=== PATIENT | female | born 1950 | race Caucasian/White ===

== ENCOUNTER 2016-12-17 10:00 | Emergency (ER) | payer OTHER ==
[2016-12-17] MEDS ORDERED: Morphine Sulfate 2 MG/ML SYRINGE ONE (10:34)
[2016-12-17] MEDS ORDERED: Albuterol Sulfate 2.5 mg/3 ml Neb ONE (10:34)
[2016-12-17 10:45] LABS: Blood, Urine Large (Negative); Glucose, Urine (Dipstick) Negative (Negative); Ketone, Urine Negative (Negative); Nitrite Positive (Negative); Protein, Urine (Dipstick) 30 mg/dL (Neg-Trace)
[2016-12-17 10:47] LABS: Bilirubin Small (Negative)
[2016-12-17 10:49] LABS: #Basophils 0.1 thou/uL (0.0-0.2); #Eosinphils 0.1 thou/uL (0.0-0.7); #Lymphocytes 2.5 thou/uL (1.20-3.40); #Monocytes 0.5 thou/uL (0.11-0.59); #Neutrophils 6.3 thou/uL (1.40-6.50); %Basophils 0.8 % (0.0-1.0); %Eosinophils 0.8 % (0.0-10.0); Hematocrit 38.1 % (36.0-47.0); Mean Platelet Volume 6.8 fL (7.4-10.4); Red Blood Cell (RBC) Count 4.28 mill/uL (4.20-5.40); White Blood Cell (WBC) Count 9.4 thou/uL (4.8-10.8)
[2016-12-17 11:02] LABS: Bacteria/HPF 3+ HPF (None Seen); Squamous Epithelial 0-3 HPF (0-3); Yeast-All Forms Rare HPF (None Seen)
[2016-12-17 11:04] LABS: ALT (SGPT) 60 U/L (0-55); AST (SGOT) 61 U/L (5-34); Alkaline Phosphatase 84 U/L (40-150); Anion Gap 14 mmol/L (10-20); BUN (Urea Nitrogen) 18 mg/dL (9.8-20.1); Bilirubin, Total 0.6 mg/dL (0.2-1.2); Calc. Creatinine Clearance 0 mL/min (70-130); Calcium 9.2 mg/dL (7.8-10.44); Carbon Dioxide 23 mmol/L (23-31); Chloride 103 mmol/L (98-107); Estimated GFR-MDRD 86; Globulin 3.7 g/dL (2.4-3.5); Protein, Total 7.6 g/dL (5.8-8.1)
[2016-12-17 11:06] LABS: Troponin I Less than 0.010 ng/mL (< 0.028)
[2016-12-17] MEDS ORDERED: Sodium Chloride 0.9% 100 ML ONE (11:38)
[2016-12-17] MEDS ORDERED: cefTRIAXone\\ROCEPHIN 1 GM VIAL ONE (11:38)
--- NOTE | 2016-12-17 11:56 | CT ---
CT LUMBAR SPINE: Date: 12/17/[address] of the lumbar spine was performed following trauma. Axial slices were acquired, then coron al and sagittal reconstructions were done. FINDINGS: There is a fracture of the right transverse process of L3. This looks like it may be old and the rig ht transverse process of L2 is a bit irregular, suggesting it may have been involved by trauma in th e past. Otherwise, no lumbar fractures were seen. No focal disc herniations were appreciated. There is some mild concentric bulging of the L4-5 and L5-S1 discs. Facet arthritis is prominent in the low er lumbar levels. No central canal stenosis or foraminal stenosis was appreciated in the lumbar dennise on. An incidental finding on the study is arteriosclerosis with an abdominal aortic aneurysm that is bel ow the kidneys and reaches a maximal AP diameter of 3.2 cm. The aorta transiently dilates right arou nd the level of the renal arteries again, but the AP diameter there is about 2.3 cm. IMPRESSION: 1. Fracture of right transverse process of L3, possibly old. No other fracture seen. 2. 3+ cm infrarenal abdominal aortic aneurysm. POS: [facility]
[2016-12-17] MEDS ORDERED: Magnesium Sulfate 2 GM/100 ML BAG ONE (12:04)
[2016-12-17] MEDS ORDERED: methylPREDNISolone Sod Succ/PF 125 MG/2 ML VIAL ONE (12:04)
--- NOTE | 2016-12-17 12:07 | CT ---
CT OF THE PELVIS WITHOUT CONTRAST: Date: 12/17/[address] of the pelvis was performed for evaluation following trauma. Axial slices were acquired, t hen coronal and sagittal reconstructions were done. FINDINGS: There are fractures of the left superior and inferior pubic rami that are relatively nondisplaced. I do not see a significant pelvic hematoma. The hips are symmetrical and appear intact bilaterally. T he SI joints were roughly symmetrical. No sacral fractures were appreciated. Each iliac bone appeare d intact. IMPRESSION: Acute fractures of the left superior and inferior pubic rami. POS: [facility]
--- NOTE | 2016-12-17 12:17 | CT ---
CT OF THE LEFT HIP: Date: 12/17/[address] of the left hip was performed following trauma. FINDINGS: The proximal femur itself appear intact. No hip fractures noted. Hip joint space is normal in width. An irregularity along the outer surface of the femoral neck is symmetrical with the right hip and i s not a fracture. There are fractures of the left superior and inferior pubic rami that are relative ly nondisplaced. No pelvic hematoma seen on the images provided. IMPRESSION: 1. Fractures of the left superior and inferior pubic rami. 2. Left hip intact. POS: [facility]
--- NOTE | 2016-12-17 12:19 | RAD ---
PORTABLE CHEST: Date: 12/17/16 An AP portable film at 1122 hours is compared with the 08/10/16 study. FINDINGS: The heart is normal in size. The lungs are clear. No infiltrate, effusion, or vascular congestion se en. There is no mediastinal widening or shift. While the bones are not seen optimally, no gross frac tures were evident. IMPRESSION: Stable exam showing no acute findings. POS: [facility]
--- NOTE | 2016-12-17 14:34 | ERRECORD ---
[facility] (10:08 [facility]) MERGE: Ambulance TueDec 17, 2016 10:00. HPI FALL (10:31 JPIP) CHIEF COMPLAINT: Patient presents for evaluation of fall, from standing, landing on hard surface, landing on left side, Patient presents for evaluation of patient states she misplaced her cane stepping off a curb and fell on her left side, last evening. HISTORIAN: History provided by patient, Additional history obtained from EMS. LOCATION: Symptoms are localized, most severe to left hip and low back. QUALITY: Pain is dull in nature, described as aching. TIME COURSE: Sudden onset of symptoms, Date and time of onset was last night, There has been no change in the patient's symptoms over time, are constant. SEVERITY: Maximum severity of pain rated as 10/10, Current severity of pain rated as 7/10. ASSOCIATED WITH: No associated neck pain, No associated chest pain, No associated abdominal pain, Associated with back pain, moderate, to the lower back, No associated clavicle pain, No associated shoulder pain, No associated elbow pain, No associated wrist pain, No associated hand pain, No associated finger pain, Associated with hip pain, on the left, No associated knee pain, No associated ankle pain, No associated foot pain, No associated laceration(s), No associated headache, No associated loss of consciousness, No associated neurological symptoms prior to arrival, No associated numbness, Associated with shortness of breath, No associated tingling, No associated vomiting. EXACERBATED BY: Patient's condition exacerbated by extension, Patient's condition exacerbated by flexion, Patient's condition exacerbated by pronation, Patient's condition exacerbated by supination, Patient's condition exacerbated by walking, Patient's condition exacerbated by bearing weight. RELIEVED BY: Patient's condition relieved by nothing. RISK FACTORS: Risk factors for intracranial bleed, not applicable for this patient. ROS (10:34 JP) CONSTITUTIONAL: Historian denies fever, denies lethargy. ENT: Historian denies epistaxis, denies otorrhea, denies rhinorrhea. CARDIOVASCULAR: Historian denies chest pain, reports dyspnea on exertion. RESPIRATORY: Historian reports cough, reports shortness of breath. GI: Historian denies abdominal pain, denies nausea, denies vomiting. GENITOURINARY FEMALE: Historian denies hematuria, denies &a-1R&a+25V*p+0X*[id number]*c202B*c15G*c2P*p-0X&a-25V&a+1R Name: Shannon Kaur : 1950 F66 MedRec: [id number] AcctNum: [id number] Prepared: TueDec 17, 2016 14:31 by Interface Page 1 of 5 pMD [facility] EMERGENCY RECORD incontinence. MUSCULOSKELETAL: Historian reports arthralgias, reports back pain, reports fall, reports injury, reports joint stiffness. SKIN: Historian denies rash, denies skin changes, denies skin lesions. NEUROLOGIC: Historian denies mental status changes, denies paresthesias. NOTES: All systems reviewed, negative except as described above. PAST MEDICAL HISTORY MEDICAL HISTORY: Notes: right hip pain, COPD, Neuropathy, HTN, IBS, Notes: BRONCHITIS, HYPOTHYROIDISM, IBS, RLS, VERTIGO, Past medical history includes history of hypertension,. (10:13 JSMI) FEMALE SURGICAL HISTORY: Surgical history of appendectomy, Surgical history of hysterectomy, Surgical history of tonsillectomy. Patient's surgical history is not relevant to the management of the case. Lumpectomy. (10:13 JSMI) PSYCHIATRIC HISTORY: Depression. (10:13 JSMI) Notes: anxiety disorder. (10:38 JPIP) SOCIAL HISTORY: currently uses tobacco, smokes cigarettes, Patient smokes 1/2 packs per day. (10:13 JSMI) NOTES: Nursing records reviewed, Old chart reviewed, Medication list reviewed. (10:37 JPIP) KNOWN ALLERGIES traMADol: Reaction: Nausea, - dizziness intermittant CURRENT MEDICATIONS amLODIPine: TABLET : Strength - 10 mg : ORAL Patient Dose: 10 mg Oral ONCE. (10:11 AHOO) Savella: TABLET : Strength - 100 mg : ORAL Patient Dose: 100 mg Oral 2 times a day. (10:11 AHOO) loratadine: TABLET : Strength - 10 mg : ORAL Patient Dose: 10 mg Oral ONCE. (10:11 AHOO) levothyroxine: TABLET : Strength - 75 mcg : ORAL Patient Dose: 75 mcg Oral ONCE. (10:11 AHOO) cloNIDine HCl: TABLET : Strength - 0.1 mg : ORAL Patient Dose: 1 tab(s) Oral 2 times a day. (10:11 AHOO) citalopram: TABLET : Strength - 40 mg : ORAL Patient Dose: 1 tab(s) Oral once a day. (10:11 AHOO) Crestor: TABLET : Strength - 10 mg : ORAL Patient Dose: 1 tab(s) Oral once a day. (10:11 AHOO) &a-1R&a+25V*p+0X*[id number]*c202B*c15G*c2P*p-0X&a-25V&a+1R Name: Shannon Kaur : 1950 F66 MedRec: [id number] AcctNum: [id number] Prepared: TueDec 17, 2016 14:31 by Interface Page 2 of 5 pMD [facility] EMERGENCY RECORD dicyclomine: CAPSULE : Strength - 10 mg : ORAL Patient Dose: 1 cap(s) Oral 3 times a day. (10:17 AHOO) VITAL SIGNS VITAL SIGNS: BP: 159/80, Pulse: 100, Resp: 24, Temp: 100.0 (Oral), Pain: 7, O2 sat: 89 on Room Air, Time: 12/17/2016 10:04. (10:04 [facility]) BP: 165/89, Pulse: 94, Resp: 24, O2 sat: 96 on 2L Oxygen, Time: 12/17/2016 10:30. (10:30 OO) BP: 134/82, Pulse: 95, Resp: 20, Pain: 7, O2 sat: 98 on 2L Oxygen, Time: 12/17/2016 11:30. (11:30 [facility]) Temp: 99.9 (Oral), Time: 12/17/2016 12:02. (12:02 OO) BP: 136/80, Pulse: 84, Resp: 20, Pain: 5, O2 sat: 91 on 2L Oxygen, Time: 12/17/2016 13:00. (13:00 OO) Temp: 99.0 (Oral), Time: 12/17/2016 13:36. (13:36 OO) BP: 141/89, Pulse: 80, Resp: 20, Pain: 5, O2 sat: 93 on 2L Oxygen, Time: 12/17/2016 14:00. (14:00 [facility]) PHYSICAL EXAM (10:[address] [facility]GENCY [facility]) CONSTITUTIONAL: Vital signs reviewed, Patient febrile, temperature of 100.0, Pulse, tachycardic, Blood pressure, hypertensive, Respiratory rate, increased, Patient appears, uncomfortable, Patient appears in pain, in moderate pain distress, Patient alert and oriented to person, place and time. HEAD: Head exam included findings of head atraumatic, normocephalic. EYES: Eye exam included findings of eyelids normal to inspection, Conjunctiva normal, Sclera normal, no periorbital ecchymosis, no periorbital edema, no periorbital erythema. NECK: Neck exam included findings of normal range of motion, Trachea midline, no carotid bruits, no jugular venous distention, no tenderness. RESPIRATORY CHEST: Respiratory exam included findings of, mild respiratory distress, Breath sounds not clear, Wheezing present, diffusely, No rales, No rhonchi, Breath sounds not absent, Breath sounds diminished, to bilateral upper lobes, to bilateral lower lobes. CARDIOVASCULAR: Cardiovascular exam included findings of, rate tachycardic, rhythm regular. ABDOMEN FEMALE: Abdominal exam included findings of abdomen nontender, Liver normal, Spleen normal, no distension, no mass, no pulsatile masses, no peritoneal signs, no rigidity, no guarding, no rebound. BACK: Tenderness, midline to the lower back, paraspinal to the left lower back. &a-1R&a+25V*p+0X*d9745S*c202B*c15G*c2P*p-0X&a-25V&a+1R Name: Shannon Kaur : 1950 F66 MedRec: [id number] AcctNum: [id number] Prepared: TueDec 17, 2016 14:31 by Interface Page 3 of 5 pMD [facility] EMERGENCY RECORD UPPER EXTREMITY: Upper extremity exam included findings of inspection normal, range of motion normal. LOWER EXTREMITY: Left hip exam included findings of, no external rotation, no internal rotation, no shortening, tenderness, active range of motion abnormal, passive range of motion abnormal, distal pulses intact, distal motor intact. NEURO: Neuro exam findings include patient oriented to person, place and time, Raulito coma scale 15, Speech normal, no focal motor deficits. SKIN: Skin exam included findings of skin warm, dry, and normal in color. LYMPHATIC: Lymphatic exam included findings of cervical nodes normal, Submandibular normal. PSYCHIATRIC: Psychiatric exam included findings of patient oriented to person place and time, Normal affect. RADIOLOGYINTERPRETATION BACK: Lumbar spine CT shows, Other findings: L3 transverse process fx ?age. (12:04 JPIP) CHEST: Chest films negative, no infiltrates, no pneumothorax, no hemothorax, no masses, no cardiomegaly, no congestive heart failure, no effusion, no free air. (12:10 JPIP) LOWER EXTREMITIES: CT left hip neg +superior and inferior pubic ramus FX's. (12:04 JPIP) DEWER: Preliminary review of x-rays by, ED Physician, Preliminary review of CT scans by, Radiologist. (12:04 JPIP) MEDICATION ADMINISTRATION SUMMARY Drug Name: magnesium sulfate in water, Dose Ordered: 2 g, Route: IV Piggy Back, Status: Given, Time: 12:30 12/17/2016, Drug Name: Solu-MEDROL injection, Dose Ordered: 125 mg, Route: IV Push, Status: Given, Time: 12:09 12/17/2016, Drug Name: Rocephin injection, Dose Ordered: 2 g, Route: IV Piggy Back, Status: Given, Time: 11:53 12/17/2016, Drug Name: Dilaudid injection, Dose Ordered: 1 mg, Route: IV Push, Status: Given, Time: 11:53 12/17/2016, Drug Name: albuterol sulfate inhalation, Dose Ordered: 3 mL, Route: Nebulize, Status: Given, Time: 11:31 12/17/2016, Drug Name: morphine (PF) injection, Dose Ordered: 2 mg, Route: IV Push, Status: Given, Time: 10:39 12/17/2016, Drug Name: Normal Saline, Dose Ordered: 150 mL/hr, Route: IV Fluid Infusion, Status: Given, Time: 10:36 12/17/2016, Drug Name: DuoNeb, Dose Ordered: 3 mL, Route: Nebulize, Status: Given, Time: 10:35 12/17/2016, Detailed record available in Medication Service section. DOCTOR NOTES (13:15 JPIP) RE-EVALUATION: Routine re-evaluation, after administration of analgesics, The patient's condition has improved. &a-1R&a+25V*p+0X*f2599N*c202B*c15G*c2P*p-0X&a-25V&a+1R Name: Shannon Kaur : 1950 F66 MedRec: [id number] AcctNum: [id number] Prepared: TueDec 17, 2016 14:31 by Interface Page 4 of 5 pMD [facility] EMERGENCY RECORD PROBLEM LIST No recorded problems DIAGNOSIS (13:34 JPIP) FINAL: PRIMARY: superior and inferior pelvic ramus fx, ADDITIONAL: COPD exacerbation, L3 transvers process fx - age unknown., UTI. PRESCRIPTION No recorded prescriptions DISPOSITION PATIENT: Disposition Type: Transfer, Disposition: [facility], Disposition Transport: Ambulance, Condition: Improved. (13:34 JPIP) Patient left the department. (14:25 AHOO) [place]: AHOO=NISHANT Reed, February JPIP=DO Polanco Joseph JSMI=VALENTINO Schultz, Susan &a-1R&a+25V*p+0X*[id number]*c202B*c15G*c2P*p-0X&a-25V&a+1R Name: Shannon Kaur : 1950 F66 MedRec: [id number] AcctNum: [id number] Prepared: TueDec 17, 2016 14:31 by Interface Page 5 of 5 pMD [facility]TDD
--- NOTE | 2016-12-17 14:39 | PICIS ---
[facility] EMERGENCY RECORD COMMUNICATIONS (13:33 JPIP) COMMUNICATIONS: Physician, contacted/paged at [phone], Reason for notification transfer, Dr Jarvis accepts. ADMIN (10:08 JSMI) MERGE: Ambulance TueDec 17, 2016 10:00. TRIAGE (10:07 JSMI) PATIENT: NAME: Shannon Kaur, AGE: 66, GENDER: female, : Tue1950, TIME OF GREET: TueDec 17, 2016 10:01, PREFERRED LANGUAGE: Romansh, ETHNICITY: Not or , ECODE BILLING MAP: [facility], SSN: [id number], Zip Code: [address], KG WEIGHT: 68.04, PHONE: , , , PERSON ID: [id number], PAYMENT: X Medicaid, PCP: POLLO Meehan Kimberly. (10:07 JSMI) COMPLAINT: left hip pain. (10:07 JSMI) ADMISSION: URGENCY: 4 Non Urgent, ADMISSION SOURCE: Home, TRANSPORT: CAR, BED: TRIAGE. (10:07 JSMI) ASSESSMENT: Assessment: PT PRESENTS AWAKE ALERT AND ORIENTED. SKIN PINK WARM AND DRY., Symptoms began 12/16/2016 1730. (10:13 JSMI) PAIN: Pain is constant. (10:13 JSMI) SIRS SCORING: Heart Rate 55-109 (0), Temp range 96.8-101.1 (0), respiratory rate 12-24 (0), Mental Status altered: no (0), Infection or Suspected Infection: No. (10:13 JSMI) PROVIDERS: TRIAGE NURSE: Chino Schultz RN. (10:07 JSMI) VITAL SIGNS: BP 159/80, Pulse 100, Resp 24, Temp 100.0, (Oral), Pain 7, O2 Sat 89, on Room Air, Time 12/17/2016 10:04. (10:04 JSMI) PREVIOUS VISIT ALLERGIES: traMADol. (10:07 JSMI) traMADol. (10:13 JSMI) KNOWN ALLERGIES traMADol: Reaction: Nausea, - dizziness intermittant CURRENT MEDICATIONS amLODIPine: TABLET : Strength - 10 mg : ORAL Patient Dose: 10 mg Oral ONCE. (10:11 AHOO) Savella: TABLET : Strength - 100 mg : ORAL Patient Dose: 100 mg Oral 2 times a day. (10:11 AHOO) loratadine: TABLET : Strength - 10 mg : ORAL Patient Dose: 10 mg Oral ONCE. (10:11 AHOO) levothyroxine: TABLET : Strength - 75 mcg : ORAL Patient Dose: 75 mcg Oral ONCE. (10:11 AHOO) cloNIDine HCl: TABLET : Strength - 0.1 mg : ORAL Patient Dose: 1 tab(s) Oral 2 times a day. (10:11 AHOO) citalopram: &a-1R&a+25V*p+0X*z3016J*c202B*c15G*c2P*p-0X&a-25V&a+1R Name: Shannon Kaur : 1950 F66 MedRec: [id number] AcctNum: [id number] Prepared: TueDec 17, 2016 14:36 by Interface Page 1 of 15 pMD [facility] EMERGENCY RECORD TABLET : Strength - 40 mg : ORAL Patient Dose: 1 tab(s) Oral once a day. (10:11 AHOO) Crestor: TABLET : Strength - 10 mg : ORAL Patient Dose: 1 tab(s) Oral once a day. (10:11 AHOO) dicyclomine: CAPSULE : Strength - 10 mg : ORAL Patient Dose: 1 cap(s) Oral 3 times a day. (10:17 AHOO) VITAL SIGNS VITAL SIGNS: BP: 159/80, Pulse: 100, Resp: 24, Temp: 100.0 (Oral), Pain: 7, O2 sat: 89 on Room Air, Time: 12/17/2016 10:04. (10:04 [facility]) BP: 165/89, Pulse: 94, Resp: 24, O2 sat: 96 on 2L Oxygen, Time: 12/17/2016 10:30. (10:30 AHOO) BP: 134/82, Pulse: 95, Resp: 20, Pain: 7, O2 sat: 98 on 2L Oxygen, Time: 12/17/2016 11:30. (11:30 JSIA) Temp: 99.9 (Oral), Time: 12/17/2016 12:02. (12:02 AHOO) BP: 136/80, Pulse: 84, Resp: 20, Pain: 5, O2 sat: 91 on 2L Oxygen, Time: 12/17/2016 13:00. (13:00 AHOO) Temp: 99.0 (Oral), Time: 12/17/2016 13:36. (13:36 AHOO) BP: 141/89, Pulse: 80, Resp: 20, Pain: 5, O2 sat: 93 on 2L Oxygen, Time: 12/17/2016 14:00. (14:00 AHOO) NURSING ASSESSMENT: EXTREMITY LOWER (10:40 JSMI) CONSTITUTIONAL: Complex assessment performed, Patient arrives ambulatory, Gait steady, History obtained from patient, Patient appears comfortable, Patient cooperative, Patient alert, Oriented to person, place and time, Skin warm, Skin dry, Skin normal in color, Patient complains of LEFT HIP PAIN. PAIN: miserable pain, to the left hip, on a scale 0-10 patient rates pain as 7. LEFT LOWER EXTREMITY: Left lower extremity assessment findings include capillary refill less than 2 seconds, Skin color normal, Skin temperature warm, Distal sensation intact, Muscle tone normal, dorsalis pedis pulse is +3, Notes: Pain to left groin through to iliac crest. RIGHT LOWER EXTREMITY: Right lower extremity assessment findings include capillary refill less than 2 seconds, Skin color normal, Skin temperature warm, Distal sensation intact, Muscle tone normal. NURSING ASSESSMENT: FALL RISK (12:14 JSMI) FALL RISK: Fall risk assessment findings include: History of falls (5), Bed rest greater than 2 days (5), No use of level of consciousness altering agents with mentation or cognitive changes (0), No change in blood pressure (0), No sensory deficits (0), Impaired mobility (3), No neurologic diagnosis (0), No elimination problems (0), No confusion (0), Total score 13, Fall risk. &a-1R&a+25V*p+0X*b3977W*c202B*c15G*c2P*p-0X&a-25V&a+1R Name: Shannon Kaur : 1950 F66 MedRec: [id number] AcctNum: [id number] Prepared: TueDec 17, 2016 14:36 by Interface Page 2 of 15 pMD [facility] EMERGENCY RECORD NURSING ASSESSMENT: SKIN (12:09 JSMI) SKIN: Skin assessment findings include skin warm, Skin dry, Skin normal in color. DENNIS SCALE: (4) Sensory perception has no impairment, (3) Skin is occasionally moist, (2) Patient is chairfast, (2) Very limited mobility, (3) Adequate nutrition, (2) Patient has potential problem moving, Dennis Risk Total: 16. NURSING PROCEDURE: BEDSIDE SIRS TESTING (12:17 JSMI) SCORES: Heart Rate 55-109 (0), Temp range 96.8-101.1 (0), respiratory rate 12-24 (0), Latest WBC 3-14.9 (0), Mental Status altered: no (0), Infection or Suspected Infection: No. NURSING PROCEDURE: IV IV SITE 1: IV established, to the left antecubital, using an 18 gauge catheter, Notes: CHIEF ELECTRICIAN PER EMS. (10:32 AHOO) FOLLOW-UP SITE 1: After procedure, sterile transparent dressing applied, After procedure, no drainage at IV site, After procedure, no swelling at IV site, After procedure, no redness at IV site, Notes: IV PATENT AND INFUSING WITH DIFFICULTY. (14:17 AHOO) NURSING PROCEDURE: TRANSFER TRANSFER: Report called to receiving facility, SAUL AVELAR, Provided opportunity to answer questions, Bed assigned ER. (14:02 AHOO) Reason for transfer need for specialized care, Diagnosis: PELVIC FX, EXAC COPD, UTI, Accepting institution: [facility], Accepting physician: DR JARVIS, Referring physician: DR POLANCO, Transported by urgent ambulance, accompanied by emergency medical services personnel, Summary of Care printed, Copy of patient record prepared for receiving facility, Copy of diagnostic studies, Status of patient's valuables documented on chart, Medication reconciliation form prepared and sent to receiving facility, Patient consent for transfer signed, Family member contacted, PT NOTIFIED HER FAMILY VIA HER CELL PHONE, Notes: 1245 CALLED THE TRANSFERRED CENTER AND SPOKE WITH BALJINDER, 1332 DR JARVIS ACCEPTED AT THE [facility], 1332 ACCEPTING AD IS WICHO GONZALEZ, 1333 CHINO CALLED EMS, 1407 EMS ARRIVED. (14:07 AHOO) Notes: EMS LEFT WITH THE PT. (14:17 AHOO) BELONGINGS: cellular phone, purse, Description BLACK. (14:07 AHOO) ORDER DETAILS Order Name: B type Natriuretic Peptide, Status: Active, Time: 10:25 12/17/2016, User: DANELLE, - Ordered for: DO Polanco Joseph, - Entered by: DO Polanco Joseph - TueDec 17, 2016 10:25, - Quantity: 1, Order Name: CRUSHER OPERATOR ED, Status: Done, Time: 10:31 12/17/2016, &a-1R&a+25V*p+0X*l3136R*c202B*c15G*c2P*p-0X&a-25V&a+1R Name: Shannon Kaur : 1950 F66 MedRec: [id number] AcctNum: [id number] Prepared: TueDec 17, 2016 14:36 by Interface Page 3 of 15 pMD [facility] EMERGENCY RECORD User: JAQUELINE, - Ordered for: DO Polanco Joseph, - Entered by: DO Polanco Joseph - TueDec 17, 2016 10:25, - Quantity: 1, Order Name: Cardiac Profile w/CKMB & Troponin - I, Status: Active, Time: 10:25 12/17/2016, User: DANELLE, - Ordered for: DO Polanco Joseph, - Entered by: DO Polanco Joseph - TueDec 17, 2016 10:25, - Quantity: 1, Order Name: CBC with Differential, Status: Active, Time: 10:25 12/17/2016, User: DANELLE, - Ordered for: DO Polanco Joseph, - Entered by: DO Polanco Joseph - TueDec 17, 2016 10:25, - Quantity: 1, Order Name: Comprehensive Metabolic Panel, Status: Active, Time: 10:25 12/17/2016, User: DANELLE, - Ordered for: DO Polanco Joseph, - Entered by: DO Polanco Joseph - TueDec 17, 2016 10:25, - Quantity: 1, Order Name: CT Lower Ext Lt WO Con, Status: Active, Time: 10:31 12/17/2016, User: DANELLE, - Ordered for: DO Polanco Joseph, - Entered by: DO Polanco Joseph - TueDec 17, 2016 10:31, - Quantity: 1, Order Name: CT Lumbar Spine WO Con, Status: Active, Time: 10:16 12/17/2016, User: DANELLE, - Ordered for: DO Polanco Joseph, - Entered by: DO Polanco Joseph - TueDec 17, 2016 10:16, - Quantity: 1, Order Name: CT Pelvis WO Con, Status: Active, Time: 11:13 12/17/2016, User: DANELLE, - Ordered for: DO Polanco Joseph, - Entered by: DO Polanco Joseph - TueDec 17, 2016 11:13, - Quantity: 1, Order Name: Culture, Blood, Status: Active, Time: 11:23 12/17/2016, User: DANELLE, - Ordered for: DO Polanco Joseph, - Entered by: DO Polanco Joseph - TueDec 17, 2016 11:23, - Quantity: 1, Order Name: Culture, Urine, Status: Active, Time: 10:26 12/17/2016, User: DANELLE, - Ordered for: DO Polanco Joseph, - Entered by: DO Polanco Joseph - TueDec 17, 2016 10:26, - Quantity: 1, Order Name: ERRT * Smal Vol Neb Initial Trmt, Status: Active, Time: 10:24 12/17/2016, User: DANELLE, - Ordered for: DO Polanco Joseph, - Entered by: DO Polanco Joseph - TueDec 17, 2016 10:24, - Quantity: 1, Order Name: ERRT Small Vol Neb Sub Trmt, Status: Active, Time: &a-1R&a+25V*p+0X*e8677O*c202B*c15G*c2P*p-0X&a-25V&a+1R Name: Shannon Kaur : 1950 F66 MedRec: [id number] AcctNum: [id number] Prepared: TueDec 17, 2016 14:36 by Interface Page 4 of 15 pMD [facility] EMERGENCY RECORD 10:24 12/17/2016, User: DANELLE, - Ordered for: DO Polanco Joseph, - Entered by: DO Polanco Joseph - TueDec 17, 2016 10:24, - Quantity: 1, Order Name: ERRT Oxygen Usage ER, Status: Active, Time: 10:24 12/17/2016, User: DANELLE, - Ordered for: DO Polanco Joseph, - Entered by: DO Polanco Joseph - TueDec 17, 2016 10:24, - Quantity: 1, Order Name: ERRT Pulse Oximeter ER, Status: Active, Time: 10:24 12/17/2016, User: DANELLE, - Ordered for: DO Polanco Joseph, - Entered by: DO Polanco Joseph - TueDec 17, 2016 10:24, - Quantity: 1, Order Name: Lipase, Status: Active, Time: 11:23 12/17/2016, User: DANELLE, - Ordered for: DO Polanco Joseph, - Entered by: DO Polanco Joseph - TueDec 17, 2016 11:23, - Quantity: 1, Order Name: SALINE LOCK, Status: Done, Time: 10:31 12/17/2016, User: JAQUELINE, - Ordered for: DO Polanco Joseph, - Entered by: DO Polanco Joseph - TueDec 17, 2016 10:25, - Quantity: 1, Order Name: Urinalysis w/ Rflx Microscopic, Status: Active, Time: 10:26 12/17/2016, User: DANELLE, - Ordered for: DO Polanco Joseph, - Entered by: DO Polanco Joseph - TueDec 17, 2016 10:26, - Quantity: 1, Order Name: XR Chest 1 View Portable, Status: Active, Time: 10:19 12/17/2016, User: DANELLE, - Ordered for: DO Polanco Joseph, - Entered by: DO Polanco Joseph - TueDec 17, 2016 10:19, - Quantity: 1, Order Name: XR Hip Lt 2-3 View STANDARD, Status: Canceled, Time: 11:45 12/17/2016, User: System, - Ordered for: DO Polanco Joseph, - Entered by: DO Polanco Joseph - TueDec 17, 2016 10:10, - Quantity: 1. MEDICATION ADMINISTRATION SUMMARY Drug Name: magnesium sulfate in water, Dose Ordered: 2 g, Route: IV Piggy Back, Status: Given, Time: 12:30 12/17/2016, Drug Name: Solu-MEDROL injection, Dose Ordered: 125 mg, Route: IV Push, Status: Given, Time: 12:09 12/17/2016, Drug Name: Rocephin injection, Dose Ordered: 2 g, Route: IV Piggy Back, Status: Given, Time: 11:53 12/17/2016, Drug Name: Dilaudid injection, Dose Ordered: 1 mg, Route: IV Push, Status: Given, Time: 11:53 12/17/2016, &a-1R&a+25V*p+0X*s5515G*c202B*c15G*c2P*p-0X&a-25V&a+1R Name: Shannon Kaur : 1950 F66 MedRec: [id number] AcctNum: [id number] Prepared: TueDec 17, 2016 14:36 by Interface Page 5 of 15 pMD [facility] EMERGENCY RECORD Drug Name: albuterol sulfate inhalation, Dose Ordered: 3 mL, Route: Nebulize, Status: Given, Time: 11:31 12/17/2016, Drug Name: morphine (PF) injection, Dose Ordered: 2 mg, Route: IV Push, Status: Given, Time: 10:39 12/17/2016, Drug Name: Normal Saline, Dose Ordered: 150 mL/hr, Route: IV Fluid Infusion, Status: Given, Time: 10:36 12/17/2016, Drug Name: DuoNeb, Dose Ordered: 3 mL, Route: Nebulize, Status: Given, Time: 10:35 12/17/2016, Detailed record available in Medication Service section. MEDICATION SERVICE albuterol sulfate inhalation: Order: albuterol sulfate inhalation (albuterol sulfate) - Dose: 3 mL : Nebulize Schedule: Now Ordered by: Urban Polanco DO Entered by: Urban Polanco DO TueDec 17, 2016 10:25 , Acknowledged by: Disha Reed LVN TueDec 17, 2016 10:33 Documented as given by: Chino Schultz RN TueDec 17, 2016 11:31 Patient, Medication, Dose, Route and Time verified prior to administration. Correct patient, time, route, dose and medication confirmed prior to administration, Patient advised of actions and side-effects prior to administration, Allergies confirmed and medications reviewed prior to administration, Patient in position of comfort, Side rails up, Cart in lowest position. : Follow Up : Response assessment performed, No signs or symptoms of allergic reaction noted, Decreased respiratory rate, Decreased respiratory effort. (13:10 AHOO) Dilaudid injection: Order: Dilaudid injection (hydromorphone HCl) - Dose: 1 mg : IV Push POTENTIAL ALLERGY REACTION: 'traMADol [tramadol/tramadol HCl]' - Not a true drug allergy Schedule: Now Ordered by: Urban Polanco DO Entered by: Urban Polanco DO TueDec 17, 2016 12:01 Documented as given by: Chino Schultz RN TueDec 17, 2016 11:53 Patient, Medication, Dose, Route and Time verified prior to administration. IV SITE #1 IVP, subsequent different medication, Slowly, Catheter placement confirmed via flush prior to administration, IV site without signs or symptoms of infiltration during medication administration, No swelling during administration, No drainage during administration, IV flushed after administration, Correct patient, time, route, dose and medication confirmed prior to administration, Patient advised of actions and side-effects prior to administration, Allergies confirmed and medications reviewed prior to administration, Patient in position of comfort, Side rails up, Cart in lowest position. : Follow Up : Response assessment performed, No signs or symptoms of allergic reaction noted, Decreased pain, _IV &a-1R&a+25V*p+0X*y3301J*c202B*c15G*c2P*p-0X&a-25V&a+1R Name: Shannon Kaur : 1950 F66 MedRec: [id number] AcctNum: [id number] Prepared: TueDec 17, 2016 14:36 by Interface Page 6 of 15 pMD [facility] EMERGENCY RECORD SITE #1:_, PAIN LEVEL DECREASED TO 5/10. (14:17 AHOO) DuoNeb: Order: DuoNeb (ipratropium bromide/albuterol sulfate) - Dose: 3 mL : Nebulize Schedule: Now Ordered by: Urban Polanco DO Entered by: Urban Polanco DO TueDec 17, 2016 10:25 , Acknowledged by: Disha Reed LVN TueDec 17, 2016 10:33 Documented as given by: Disha Reed LVN TueDec 17, 2016 10:35 Patient, Medication, Dose, Route and Time verified prior to administration. Amount given: 3 ML, Correct patient, time, route, dose and medication confirmed prior to administration, Patient advised of actions and side-effects prior to administration, Allergies confirmed and medications reviewed prior to administration, Patient in position of comfort, Side rails up, Cart in lowest position, Family at bedside. : Follow Up : Response assessment performed, No signs or symptoms of allergic reaction noted, Decreased respiratory rate, Decreased respiratory effort. (13:10 AHOO) magnesium sulfate in water: Order: magnesium sulfate in water (magnesium sulfate/water for injection,sterile) - Dose: 2 g : IV Piggy Back Schedule: Now Ordered by: Urban Polanco DO Entered by: Urban Polanco DO TueDec 17, 2016 12:01 , Acknowledged by: Disha Reed LVN TueDec 17, 2016 12:02 Documented as given by: Disha Reed LVN TueDec 17, 2016 12:30 Patient, Medication, Dose, Route and Time verified prior to administration. Amount given: 2 G, IV SITE #1 IVPB or drip, initial infusion, Awake and alert- acceptable, Catheter placement confirmed via flush prior to administration, IV site without signs or symptoms of infiltration during medication administration, No swelling during administration, No drainage during administration, IV flushed after administration, Correct patient, time, route, dose and medication confirmed prior to administration, Patient advised of actions and side-effects prior to administration, Allergies confirmed and medications reviewed prior to administration, Patient in position of comfort, Side rails up, Cart in lowest position, Family at bedside. : Follow Up : Response assessment performed, No signs or symptoms of allergic reaction noted, _IV SITE #1:_, Medication infusion discontinued, on TueDec 17, 2016 13:00, 30 minutes, ., Total amount infused: 100ML, IV Line flushed after administration. (13:10 AHOO) morphine (PF) injection: Order: morphine (PF) injection (morphine sulfate/preservative free) - Dose: 2 mg : IV Push POTENTIAL ALLERGY REACTION: 'traMADol [tramadol/tramadol HCl]' - Not a true drug allergy Schedule: Now Ordered by: Urban Polanco DO &a-1R&a+25V*p+0X*v4803M*c202B*c15G*c2P*p-0X&a-25V&a+1R Name: Shannon Kaur : 1950 F66 MedRec: [id number] AcctNum: [id number] Prepared: TueDec 17, 2016 14:36 by Interface Page 7 of 15 pMD [facility] EMERGENCY RECORD Entered by: Urban Polanco DO TueDec 17, 2016 10:27 , Acknowledged by: Disha Reed LVN TueDec 17, 2016 10:33 Documented as given by: Chino Schultz RN TueDec 17, 2016 10:39 Patient, Medication, Dose, Route and Time verified prior to administration. IV SITE #1 IVP, initial medication, Slowly, Catheter placement confirmed via flush prior to administration, IV site without signs or symptoms of infiltration during medication administration, No swelling during administration, No drainage during administration, IV flushed after administration, Correct patient, time, route, dose and medication confirmed prior to administration, Patient advised of actions and side-effects prior to administration, Allergies confirmed and medications reviewed prior to administration, Patient in position of comfort, Side rails up, Cart in lowest position. : Follow Up : Response assessment performed, No signs or symptoms of allergic reaction noted, _IV SITE #1:_, PAIN LEVEL DECREASED TO 5/10. (14:17 AHOO) Normal Saline: Order: Normal Saline (0.9 % sodium chloride) - Dose: 150 mL/hr : IV Fluid Infusion Ordered by: Urban Polanco DO Entered by: Urban Polanco DO TueDec 17, 2016 10:28 , Acknowledged by: Disha Reed LVN TueDec 17, 2016 10:33 Documented as given by: Chino Schultz RN TueDec 17, 2016 10:36 Patient, Medication, Dose, Route and Time verified prior to administration. IV SITE #1 IV fluids established for hydration, via gravity tubing, Catheter placement confirmed via flush prior to administration, IV site without signs or symptoms of infiltration during medication administration, No swelling during administration, No drainage during administration, IV flushed after administration, Correct patient, time, route, dose and medication confirmed prior to administration, Patient advised of actions and side-effects prior to administration, Allergies confirmed and medications reviewed prior to administration, Patient in position of comfort, Side rails up, Cart in lowest position. : Follow Up : Response assessment performed, No signs or symptoms of allergic reaction noted, _IV SITE #1:_, IV fluid infusion continued upon transfer from emergency department, on TueDec 17, 2016 14:17, Total fluid hydration time IV site 1 3 hours, 45 minutes, ., Total amount infused: 525ML. (14:17 OO) Rocephin injection: Order: Rocephin injection (ceftriaxone sodium) - Dose: 2 g : IV Piggy Back Schedule: Now Ordered by: Urban Polanco DO Entered by: Urban Polanco DO TueDec 17, 2016 10:55 , Acknowledged by: Disha Reed LVN TueDec 17, 2016 11:04 Documented as given by: Chino Schultz RN TueDec 17, 2016 11:53 Patient, Medication, Dose, Route and Time verified prior to administration. IV SITE #1 IVPB or drip, initial infusion, IVPB mixed in: 100ml, &a-1R&a+25V*p+0X*a5678W*c202B*c15G*c2P*p-0X&a-25V&a+1R Name: Shannon Kaur : 1950 F66 MedRec: [id number] AcctNum: [id number] Prepared: TueDec 17, 2016 14:36 by Interface Page 8 of 15 pMD [facility] EMERGENCY RECORD Fluid: 0.9NS, via pump tubing, Catheter placement confirmed via flush prior to administration, IV site without signs or symptoms of infiltration during medication administration, No swelling during administration, No drainage during administration, IV flushed after administration, Correct patient, time, route, dose and medication confirmed prior to administration, Patient advised of actions and side-effects prior to administration, Allergies confirmed and medications reviewed prior to administration, Patient in position of comfort, Side rails up, Cart in lowest position. : Follow Up : Response assessment performed, No signs or symptoms of allergic reaction noted, _IV SITE #1:_, Medication infusion discontinued, on TueDec 17, 2016 12:29, 40 minutes, ., Total amount infused: 100ML, IV Line flushed after administration. (12:29 OO) Solu-MEDROL injection: Order: Solu-MEDROL injection (methylprednisolone sod succ) - Dose: 125 mg : IV Push Ordered by: Urban Polanco DO Entered by: Urban Polanco DO TueDec 17, 2016 12:01 , Acknowledged by: Disha Reed LVN TueDec 17, 2016 12:01 Documented as given by: Disha Reed LVN TueDec 17, 2016 12:09 Patient, Medication, Dose, Route and Time verified prior to administration. Amount given: 125MG, IV SITE #1 IVP, initial medication, Slowly, I STOPPED THE ABX AND FLUSHED THE LINE VERY WELL WITH NS ADMIN THE MED THEN FLUSHED THE LINE AGAIN VERY WELL BEFORE STARTING THE ABX BACK UP. : Follow Up : Response assessment performed, No signs or symptoms of allergic reaction noted, _IV SITE #1:_. (13:09 OO) HPI FALL (10:31 [facility]) CHIEF COMPLAINT: Patient presents for evaluation of fall, from standing, landing on hard surface, landing on left side, Patient presents for evaluation of patient states she misplaced her cane stepping off a curb and fell on her left side, last evening. HISTORIAN: History provided by patient, Additional history obtained from EMS. LOCATION: Symptoms are localized, most severe to left hip and low back. QUALITY: Pain is dull in nature, described as aching. TIME COURSE: Sudden onset of symptoms, Date and time of onset was last night, There has been no change in the patient's symptoms over time, are constant. SEVERITY: Maximum severity of pain rated as 10/10, Current severity of pain rated as 7/10. ASSOCIATED WITH: No associated neck pain, No associated chest pain, No associated abdominal pain, Associated with back pain, moderate, to the lower back, No associated clavicle pain, No associated shoulder pain, No associated elbow pain, No associated wrist pain, No associated hand pain, No associated finger pain, Associated with hip pain, on &a-1R&a+25V*p+0X*y4653L*c202B*c15G*c2P*p-0X&a-25V&a+1R Name: Shannon Kaur : 1950 F66 MedRec: [id number] AcctNum: [id number] Prepared: TueDec 17, 2016 14:36 by Interface Page 9 of 15 pMD [facility] EMERGENCY RECORD the left, No associated knee pain, No associated ankle pain, No associated foot pain, No associated laceration(s), No associated headache, No associated loss of consciousness, No associated neurological symptoms prior to arrival, No associated numbness, Associated with shortness of breath, No associated tingling, No associated vomiting. EXACERBATED BY: Patient's condition exacerbated by extension, Patient's condition exacerbated by flexion, Patient's condition exacerbated by pronation, Patient's condition exacerbated by supination, Patient's condition exacerbated by walking, Patient's condition exacerbated by bearing weight. RELIEVED BY: Patient's condition relieved by nothing. RISK FACTORS: Risk factors for intracranial bleed, not applicable for this patient. ROS (10:34 JPIP) CONSTITUTIONAL: Historian denies fever, denies lethargy. ENT: Historian denies epistaxis, denies otorrhea, denies rhinorrhea. CARDIOVASCULAR: Historian denies chest pain, reports dyspnea on exertion. RESPIRATORY: Historian reports cough, reports shortness of breath. GI: Historian denies abdominal pain, denies nausea, denies vomiting. GENITOURINARY FEMALE: Historian denies hematuria, denies incontinence. MUSCULOSKELETAL: Historian reports arthralgias, reports back pain, reports fall, reports injury, reports joint stiffness. SKIN: Historian denies rash, denies skin changes, denies skin lesions. NEUROLOGIC: Historian denies mental status changes, denies paresthesias. NOTES: All systems reviewed, negative except as described above. PAST MEDICAL HISTORY MEDICAL HISTORY: Notes: right hip pain, COPD, Neuropathy, HTN, IBS, Notes: BRONCHITIS, HYPOTHYROIDISM, IBS, RLS, VERTIGO, Past medical history includes history of hypertension,. (10:13 JSMI) FEMALE SURGICAL HISTORY: Surgical history of appendectomy, Surgical history of hysterectomy, Surgical history of tonsillectomy. Patient's surgical history is not relevant to the management of the case. Lumpectomy. (10:13 JSMI) PSYCHIATRIC HISTORY: Depression. (10:13 JSMI) Notes: anxiety disorder. (10:38 JPIP) SOCIAL HISTORY: currently uses tobacco, smokes cigarettes, Patient smokes 1/2 packs per day. (10:13 JSMI) NOTES: Nursing records reviewed, Old chart reviewed, Medication list reviewed. (10:37 JPIP) &a-1R&a+25V*p+0X*w3530H*c202B*c15G*c2P*p-0X&a-25V&a+1R Name: Shannon Kaur Liv : 1950 F66 MedRec: [id number] AcctNum: [id number] Prepared: TueDec 17, 2016 14:36 by Interface Page 10 of 15 pMD [facility] EMERGENCY RECORD PHYSICAL EXAM (10:35 JPIP) CONSTITUTIONAL: Vital signs reviewed, Patient febrile, temperature of 100.0, Pulse, tachycardic, Blood pressure, hypertensive, Respiratory rate, increased, Patient appears, uncomfortable, Patient appears in pain, in moderate pain distress, Patient alert and oriented to person, place and time. HEAD: Head exam included findings of head atraumatic, normocephalic. EYES: Eye exam included findings of eyelids normal to inspection, Conjunctiva normal, Sclera normal, no periorbital ecchymosis, no periorbital edema, no periorbital erythema. NECK: Neck exam included findings of normal range of motion, Trachea midline, no carotid bruits, no jugular venous distention, no tenderness. RESPIRATORY CHEST: Respiratory exam included findings of, mild respiratory distress, Breath sounds not clear, Wheezing present, diffusely, No rales, No rhonchi, Breath sounds not absent, Breath sounds diminished, to bilateral upper lobes, to bilateral lower lobes. CARDIOVASCULAR: Cardiovascular exam included findings of, rate tachycardic, rhythm regular. ABDOMEN FEMALE: Abdominal exam included findings of abdomen nontender, Liver normal, Spleen normal, no distension, no mass, no pulsatile masses, no peritoneal signs, no rigidity, no guarding, no rebound. BACK: Tenderness, midline to the lower back, paraspinal to the left lower back. UPPER EXTREMITY: Upper extremity exam included findings of inspection normal, range of motion normal. LOWER EXTREMITY: Left hip exam included findings of, no external rotation, no internal rotation, no shortening, tenderness, active range of motion abnormal, passive range of motion abnormal, distal pulses intact, distal motor intact. NEURO: Neuro exam findings include patient oriented to person, place and time, Raulito coma scale 15, Speech normal, no focal motor deficits. SKIN: Skin exam included findings of skin warm, dry, and normal in color. LYMPHATIC: Lymphatic exam included findings of cervical nodes normal, Submandibular normal. PSYCHIATRIC: Psychiatric exam included findings of patient oriented to person place and time, Normal affect. LAB INTERPRETATION (12:07 JPIP) INTERPRETATION: I reviewed the lab results, All labs normal &a-1R&a+25V*p+0X*r0264V*c202B*c15G*c2P*p-0X&a-25V&a+1R Name: Shannon Kaur : 1950 F66 MedRec: [id number] AcctNum: [id number] Prepared: TueDec 17, 2016 14:36 by Interface Page 11 of 15 pMD [facility] EMERGENCY RECORD except as noted below, CBC normal, Chemistry normal, Cardiac enzymes normal, Liver functions abnormal, Total bilirubin normal, AST(SGOT) elevated, ALT(SGPT) elevated, Lipase normal, Urinalysis abnormal, positive for leukocytes, positive for erythrocytes, positive for nitrites, positive for bacteria, Specific gravity increased. EVENTS TRANSFER: Triage to Emergency Triage. (TueDec 17, 2016 10:07 JSMI) Emergency Triage to Emergency Room -04. (10:08 JSMI) Removed from Emergency Emergency Room -04. (14:25 AHOO) RADIOLOGYINTERPRETATION BACK: Lumbar spine CT shows, Other findings: L3 transverse process fx ?age. (12:04 JPIP) CHEST: Chest films negative, no infiltrates, no pneumothorax, no hemothorax, no masses, no cardiomegaly, no congestive heart failure, no effusion, no free air. (12:10 JPIP) LOWER EXTREMITIES: CT left hip neg +superior and inferior pubic ramus FX's. (12:04 JPIP) EQUIPMENT ENGINEER: Preliminary review of x-rays by, ED Physician, Preliminary review of CT scans by, Radiologist. (12:04 JPIP) O2SAT INTERPRETATION (10:26 JPIP) O2SAT: Continuous pulse oximetry, Oxygen saturation 89%, on room air, Oxygen saturation interpretation: Hypoxic, Intervention required: patient observed, Intervention required: Oxygen administration, Intervention required: aerosol treatment. DOCTOR NOTES (13:15 JPIP) RE-EVALUATION: Routine re-evaluation, after administration of analgesics, The patient's condition has improved. PROBLEM LIST No recorded problems DIAGNOSIS (13:34 JPIP) FINAL: PRIMARY: superior and inferior pelvic ramus fx, ADDITIONAL: COPD exacerbation, L3 transvers process fx - age unknown., UTI. DISPOSITION PATIENT: Disposition Type: Transfer, Disposition: [facility], Disposition Transport: Ambulance, Condition: Improved. (13:34 JPIP) Patient left the department. (14:25 AHOO) &a-1R&a+25V*p+0X*q9683S*c202B*c15G*c2P*p-0X&a-25V&a+1R Name: Shannon Kaur : 1950 F66 MedRec: [id number] AcctNum: [id number] Prepared: TueDec 17, 2016 14:36 by Interface Page 12 of 15 pMD [facility] EMERGENCY RECORD PRESCRIPTION No recorded prescriptions IMAGING TEMPORARY RADIOLOGY REPORT: Image captured from scanner. (12:13 AHOO) EMS 12 LEAD: Image captured from scanner. (13:41 AHOO) CONSENTS: Image captured from scanner. (14:24 AHOO) *MEMORANDUM OF TRANSFER: Image captured from scanner. (14:24 AHOO) PHYSICIAN CERTIFICATION STATEMENT: Image captured from scanner. (14:24 AHOO) *SUPPLY CHARGE SHEET: Image captured from scanner. (14:25 AHOO) RESULTS LABORATORY: CBC with Differential Collection DT: TueDec 17, 2016 10:42, White Blood Cell (WBC) Count 9.4 thou/uL, Range (4.8-10.8), Red Blood Cell (RBC) Count 4.28 mill/uL, Range (4.20-5.40), Hemoglobin 12.4 g/dL, Range (12.0-16.0), Hematocrit 38.1 %, Range (36.0-47.0), Mean Corpuscular Volume 89.0 fl, Range (81.0-99.0), Mean Corpuscular Hemoglobin 29.0 pg, Range (27.0-31.0), Mean Corpuscular HGB CONC 32.6 g/dL, Range (32.0-36.0), RBC Distribution Width 12.6 %, Range (11.5-14.5), Platelet Count 211 thou/uL, Range (130-400), *Mean Platelet Volume 6.8 - L fL, Range (7.4-10.4), %Neutrophils 66.4 %, Range (42.0-75.0), %Lymphocytes 27.0 %, Range (21.0-51.0), %Monocytes 5.0 %, Range (0.0-10.0), %Eosinophils 0.8 %, Range (0.0-10.0), %Basophils 0.8 %, Range (0.0-1.0), #Neutrophils 6.3 thou/uL, Range (1.40-6.50), #Lymphocytes 2.5 thou/uL, Range (1.20-3.40), #Monocytes 0.5 thou/uL, Range (0.11-0.59), #Eosinphils 0.1 thou/uL, Range (0.0-0.7), #Basophils 0.1 thou/uL, Range (0.0-0.2). (10:54 [facility]) Urinalysis w/ Rflx Microscopic Collection DT: TueDec 17, 2016 10:42, Color Monica , Range (Yellow), Clarity Cloudy , Range (Clear), Specific Mitchells, Urine 1.030 , Range (1.005-1.030), pH, Urine 5.0 , Range (5.0-9.0), *Leukocyte Trace - H , Range (Negative), *Nitrite Positive - H , Range (Negative), *Protein, Urine (Dipstick) 30 - H mg/dL, Range (Neg-Trace), Glucose, Urine (Dipstick) Negative mg/dL, Range (Negative), Ketone, Urine Negative mg/dL, Range (Negative), Urobilinogen 1.0 mg/dL, Range (0.2-1.0), *Bilirubin Small - H , Range (Negative), CAUTION &a-1R&a+25V*p+0X*e1566J*c202B*c15G*c2P*p-0X&a-25V&a+1R Name: Shannon Kaur : 1950 F66 MedRec: [id number] AcctNum: [id number] Prepared: TueDec 17, 2016 14:36 by Interface Page 13 of 15 pMD [facility] EMERGENCY RECORD Urine, Bilirubin has a high incidence of false positive results due to urine color, interference. Interpret results in conjunction with other clinical, findings. , *Blood, Urine Large - H , Range (Negative). (10:54 JPIP) B type Natriuretic Peptide Collection DT: TueDec 17, 2016 10:42, B type Natriuretic Peptide 35.9 pg/mL, Range (0-100). (11:10 JPIP) Cardiac Profile w/CKMB & TropI Collection DT: TueDec 17, 2016 10:42, CKMB 3.4 ng/mL, Range (0-6.6), Troponin I Less than 0.010 ng/mL, Range (< 0.028), Reference Range , 0.00 - 0.028 ng/mL Negative 0.029 - 0.29 ng/mL , Indeterminate Greater or Equal to 0.3 ng/mL Strongly suggests IA , . (11:10 JPIP) Urine Microscopic Collection DT: TueDec 17, 2016 10:42, RBC/HPF 4-6 HPF, Range (0-3), *WBC/HPF 7-10 - H HPF, Range (0-3), Squamous Epithelial 0-3 HPF, Range (0-3), *Bacteria/HPF 3+ - H HPF, Range (None Seen), Yeast-All Forms Rare HPF, Range (None Seen). (11:10 JPIP) Urinalysis w/ Rflx Microscopic Collection DT: TueDec 17, 2016 10:42, Color Monica , Range (Yellow), Clarity Cloudy , Range (Clear), Specific Mitchells, Urine 1.030 , Range (1.005-1.030), pH, Urine 5.0 , Range (5.0-9.0), *Leukocyte Trace - H , Range (Negative), *Nitrite Positive - H , Range (Negative), *Protein, Urine (Dipstick) 30 - H mg/dL, Range (Neg-Trace), Glucose, Urine (Dipstick) Negative mg/dL, Range (Negative), Ketone, Urine Negative mg/dL, Range (Negative), Urobilinogen 1.0 mg/dL, Range (0.2-1.0), *Bilirubin Small - H , Range (Negative), CAUTION Urine, Bilirubin has a high incidence of false positive results due to urine color, interference. Interpret results in conjunction with other clinical, findings. , *Blood, Urine Large - H , Range (Negative). (11:10 [facility]) Comprehensive Metabolic Panel Collection DT: TueDec 17, 2016 10:42, Sodium 136 mmol/L, Range (136-145), Potassium 4.2 mmol/L, Range (3.5-5.1), Chloride 103 mmol/L, Range (98-107), Carbon Dioxide 23 mmol/L, Range (23-31), Anion Gap 14 mmol/L, Range (10-20), &a-1R&a+25V*p+0X*m7078B*c202B*c15G*c2P*p-0X&a-25V&a+1R Name: Shannon Kaur : 1950 F66 MedRec: [id number] AcctNum: [id number] Prepared: TueDec 17, 2016 14:36 by Interface Page 14 of 15 pMD [facility] EMERGENCY RECORD BUN (Urea Nitrogen) 18 mg/dL, Range (9.8-20.1), Creatinine 0.69 mg/dL, Range (0.6-1.1), Estimated GFR-MDRD 86 , Reference Range for Estimated GFR: Greater than 90, mL/min/1.73 m2 NOTE: The MDRD equation has not been validated for use, with the elderly (over 70 years of age), women, patients with, serious comorbid condition or persons with extremes of body size, muscle, mass, or nutritional status. , Glucose 87 mg/dL, Range (80-115), Calcium 9.2 mg/dL, Range (7.8-10.44), Bilirubin, Total 0.6 mg/dL, Range (0.2-1.2), Protein, Total 7.6 g/dL, Range (5.8-8.1), NOTE: Plasma values are generally 0.3 to 0.5 g/dL higher than serum values, due to the presence of fibrinogen. , Albumin 3.9 g/dL, Range (3.4-4.8), *Globulin 3.7 - H g/dL, Range (2.4-3.5), *Alb/Glob Ratio 1.1 - L g/dL, Range (1.2-2.2), Alkaline Phosphatase 84 U/L, Range (40-150), *AST (SGOT) 61 - H U/L, Range (5-34), *ALT (SGPT) 60 - H U/L, Range (0-55). (11:10 JPIP) Lipase Collection DT: TueDec 17, 2016 11:28, Lipase 11 U/L, Range (8-78). (11:45 JPIP) [place]: AHOO=NISHANT Reed, February JPIP=DO Polanco Joseph JSMI=VALENTINO Schultz, [place] &a-1R&a+25V*p+0X*b9104H*c202B*c15G*c2P*p-0X&a-25V&a+1R Name: Shannon Kaur : 1950 F66 MedRec: [id number] AcctNum: [id number] Prepared: TueDec 17, 2016 14:36 by Interface Page 15 of 15 pMD MTDD
== END 2016-12-17 14:17 | disposition short-term general hospital (02) ==
LOC: BURERS 10:00
DX: S32.9XXA Fracture of unspecified parts of lumbosacral spine and pelvis, initial encounter for closed fracture (principal); S32.039A Unspecified fracture of third lumbar vertebra, initial encounter for closed fracture; N39.0 Urinary tract infection, site not specified; J44.1 Chronic obstructive pulmonary disease with (acute) exacerbation; W19.XXXA Unspecified fall, initial encounter
CPT/HCPCS: 36415; 71010; 72131; 72192; 80053; 81003; 81015; 82553; 83690; 83880; 84484; 85025; 87040; 87077; 87086; 87186; 94640; 94760; 96361; 96365; 96367; 96375; J0696; J1170; J2270; J2930; J3475; J7050; J7611; J7620

== ENCOUNTER 2019-03-09 14:10 | Outpatient (CLI) | payer MEDICARE, OTHER ==
--- NOTE | 2019-03-09 17:50 | RAD ---
LUMBAR SPINE THREE VIEWS 03/09/19 Slight curvature of the spine convexed left was noted. The bones are osteopenic but no fracture was s een. There is beginning to be some concavity of the end plates of L2, but a true compression has not started yet. No anomalies of concern were seen. Facet arthritis seems more significant at the L4 thro ugh S1 levels. Dense arterial calcifications are present. The SI joints are symmetrical. IMPRESSION: Mild degenerative changes as noted. Particularly in the facet joints of the lower lumbar spine. No fr acture seen. Arteriosclerosis. POS: HOME
== END 2019-03-09 14:11 | disposition home or self-care (01) ==
LOC: BURRAD 14:10
PROVIDERS: ATTEND Nurse Practitioner Family
DX: M54.5 Low back pain (principal); M47.816 Spondylosis without myelopathy or radiculopathy, lumbar region
CPT/HCPCS: 72100